=== PATIENT | male | born 2000 | race Caucasian/White ===

== ENCOUNTER 2025-04-03 23:50 | Inpatient (IN) | payer SELFPAY ==
[~2025-04-03] VITALS: Ht 182.9 cm; Wt 63.5 kg
[2025-04-04 00:03] VITALS: O2SAT 99
[2025-04-04 00:40] LABS: HEMATOCRIT. 34.4 % (42.0-52.0); HEMOGLOBIN. 9.9 g/dL (14.0-18.0); MEAN PLATELET VOLUME 7.8 fl (7.4-10.4); PLATELET 713 x1000/uL (130-400); RED BLOOD CELL COUNT 4.69 mill/uL (4.7-6.1); RED CELL DISTRIBUTION WIDTH 18.6 % (11.6-14.6)
[2025-04-04] MEDS: SODIUM CHLORIDE 0.9% 1,000 ML IV ONE ×2 (00:46→03:39)
[2025-04-04] MEDS: MAGNESIUM/ALUMINUM HYDROXIDE/SIMETHICONE 30ML UDC PO ONE (00:46)
[2025-04-04] MEDS: KETOROLAC 30MG/ML VIAL IV ONE (00:47)
[2025-04-04] MEDS: FAMOTIDINE 20MG/2ML VIAL IV ONE (00:47)
[2025-04-04] MEDS: ONDANSETRON HCL 4MG/2ML INJ IV ONE (00:47)
[2025-04-04 01:05] LABS: CREATININE 0.5 mg/dL (0.6-1.3); UREA NITROGEN BLOOD < 5 mg/dL (9-23)
[2025-04-04 01:06] LABS: ETHANOL BLOOD 15 mg/dL (<10); PROTEIN TOTAL 7.5 g/dL (6.0-8.3)
[2025-04-04 01:07] LABS: ASPARTATE AMINOTRANSFERASE 42 IU/L (<34); BILIRUBIN DIRECT 0.1 mg/dL (<=3.0); BILIRUBIN TOTAL 0.3 mg/dL (0.1-1.0)
[2025-04-04] MEDS: SODIUM CHLORIDE 0.9% (SEPSIS BOLUS) IV NR (01:32)
[2025-04-04] MEDS: CEFTRIAXONE 1GM/50ML 50 ML IV NR (01:32)
[2025-04-04 01:49] LABS: INR 1.1
[2025-04-04 03:05] LABS: BAND% 4.0 % (1.0-6.0); EOSINOPHILS % MANUAL 1.0 % (0.0-5.0); LYMPHOCYTES % MANUAL 10.0 % (20.0-50.0); MONOCYTES % MANUAL 5.0 % (2.0-8.0); NEUTROPHILS % MANUAL 80.0 % (45.0-75.0)
[2025-04-04 03:06] LABS: PLATELET ESTIMATE INCREASED
[2025-04-04] MEDS: VANCOMYCIN 1G PREMIX 200 ML IV SCH (04:13)
[2025-04-04 05:44] VITALS: BP 118/59; PULSE 103; RESP 18; TEMP 37.53
[2025-04-04 08:00] VITALS: BP 114/61; PULSE 110; RESP 18; TEMP 36.2; O2SAT 99
[2025-04-04] MEDS ORDERED: LORAZEPAM 1MG TABLET PO PRN (10:15)
[2025-04-04] MEDS ORDERED: CHLORDIAZEPOXIDE 25MG CAPSULE PO PRN (10:15)
[2025-04-04] MEDS: THIAMINE HCL 100MG TABLET PO SCH (10:33)
[2025-04-04] MEDS: DEXT 5%/0.45% NACL 1000ML 1,000 ML IV SCH (10:33)
[2025-04-04] MEDS: PANTOPRAZOLE 40MG DR TABLET PO SCH (10:33)
[2025-04-04] MEDS: FOLIC ACID 1MG TABLET PO SCH (10:33)
[2025-04-04 12:00] VITALS: BP 116/67; PULSE 107; RESP 18; TEMP 36.3; O2SAT 100
[2025-04-04 13:21] LABS: CREATININE 0.4 mg/dL (0.6-1.3); UREA NITROGEN BLOOD 7 mg/dL (9-23)
[2025-04-04 13:22] LABS: PROTEIN TOTAL 6.5 g/dL (6.0-8.3)
[2025-04-04 13:23] LABS: ASPARTATE AMINOTRANSFERASE 35 IU/L (<34)
[2025-04-04 13:24] LABS: BILIRUBIN TOTAL 0.4 mg/dL (0.1-1.0)
[2025-04-04] MEDS: KETOROLAC 30MG/ML VIAL IV PRN (15:50)
[2025-04-04] MEDS: ONDANSETRON HCL 4MG/2ML INJ IV PRN (15:50)
[2025-04-04 16:00] VITALS: BP 117/65; PULSE 97; RESP 18; TEMP 36.6; O2SAT 99
[2025-04-04 20:00] VITALS: BP 97/57; PULSE 71; RESP 18; TEMP 36.4; O2SAT 99
[2025-04-05] VITALS: BP 112/71; PULSE 103; RESP 18; TEMP 36.1; O2SAT 93
[2025-04-05] MEDS: CEFTRIAXONE 1GM/50ML 50 ML IV SCH (00:51)
[2025-04-05 04:00] VITALS: BP 113/57; PULSE 107; RESP 18; TEMP 36.3; O2SAT 96
[2025-04-05 08:00] VITALS: BP 117/64; PULSE 114; RESP 15; TEMP 36.7; O2SAT 100
[2025-04-05 12:00] VITALS: BP 108/64; PULSE 96; RESP 20; TEMP 36.9; O2SAT 99
[2025-04-05 12:03] LABS: BASOPHILS % 0.8 % (0.0-2.0); EOSINOPHILS % 1.0 % (0.0-5.0); HEMATOCRIT. 25.7 % (42.0-52.0); HEMOGLOBIN. 7.9 g/dL (14.0-18.0); LYMPHOCYTES % 10.9 % (20.0-50.0); MEAN PLATELET VOLUME 8.0 fl (7.4-10.4); MONOCYTES % 12.6 % (2.0-8.0); NEUTROPHILS % 74.7 % (40.0-76.0); PLATELET 707 x1000/uL (130-400); RED BLOOD CELL COUNT 3.62 mill/uL (4.7-6.1); RED CELL DISTRIBUTION WIDTH 17.6 % (11.6-14.6)
[2025-04-05 12:16] LABS: CREATININE 0.5 mg/dL (0.6-1.3); UREA NITROGEN BLOOD < 5 mg/dL (9-23)
[2025-04-05 13:33] LABS: CLARITY URINE CLEAR (CLEAR); COLOR URINE YELLOW (YELLOW); GLUCOSE URINE NEGATIVE (NEGATIVE); KETONES URINE NEGATIVE (NEGATIVE); LEUKOCYTE ESTERASE URINE NEGATIVE (NEGATIVE); NITRITE URINE NEGATIVE (NEGATIVE); OCCULT BLOOD URINE NEGATIVE (NEGATIVE); PH URINE 7.0 (4.5-8.0); PROTEIN URINE NEGATIVE (NEGATIVE); SPECIFIC GRAVITY URINE 1.007 (1.005-1.030); UROBILINOGEN URINE 0.2 E.U./dL (0.2-1.0)
[2025-04-05 13:42] LABS: *AMPHETAMINES SCREEN URINE NEGATIVE (NEGATIVE); *BARBITURATES SCREEN URINE NEGATIVE (NEGATIVE); *BENZODIAZEPINES SCREEN URINE NEGATIVE (NEGATIVE); *COCAINE SCREEN URINE NEGATIVE (NEGATIVE); METHADONE URINE SCREEN NEGATIVE (NEGATIVE)
[2025-04-05 13:43] LABS: CANNABINOID URINE SCREEN NEGATIVE (NEGATIVE); ECSTASY MDMA SCREEN URINE NEGATIVE (NEGATIVE); OPIATES URINE SCREEN NEGATIVE (NEGATIVE); PHENCYCLIDINE URINE SCREEN NEGATIVE (NEGATIVE)
[2025-04-05 16:00] VITALS: BP 106/56; PULSE 91; RESP 20; TEMP 36.3; O2SAT 98
[2025-04-05 20:00] VITALS: BP 101/56; PULSE 99; RESP 16; TEMP 38.2; O2SAT 97
[2025-04-05] MEDS: ACETAMINOPHEN 325MG TABLET PO PRN (21:21)
[2025-04-05] MEDS: GUAIFENESIN 200MG/10ML SUGAR FREE UDC PO PRN (21:21)
[2025-04-06] VITALS (7 sets, daily range): BP systolic 98–114; BP diastolic 53–69; PULSE 67–117; RESP 16–18; TEMP 36.3–38.4; O2SAT 95–100
[2025-04-06 07:45] LABS: BASOPHILS % 1.0 % (0.0-2.0); EOSINOPHILS % 1.3 % (0.0-5.0); HEMATOCRIT. 30.4 % (42.0-52.0); HEMOGLOBIN. 9.1 g/dL (14.0-18.0); LYMPHOCYTES % 10.1 % (20.0-50.0); MEAN PLATELET VOLUME 8.1 fl (7.4-10.4); MONOCYTES % 10.6 % (2.0-8.0); NEUTROPHILS % 77.0 % (40.0-76.0); PLATELET 781 x1000/uL (130-400); RED BLOOD CELL COUNT 4.24 mill/uL (4.7-6.1); RED CELL DISTRIBUTION WIDTH 17.7 % (11.6-14.6)
[2025-04-06] MEDS: METOPROLOL TARTRATE 50MG TABLET PO SCH (08:30)
== END 2025-04-06 20:26 | disposition left against medical advice (07) | DRG 251 ==
LOC: ER 23:50 → 5WST 04-04 01:50 → EDBEDREQTM 04-04 01:53 → EDBEDREQ 04-04 01:53 → ENRESERV 04-04 02:18 → CANRESERV 04-04 02:18 → EDBEDREQTM 04-04 03:52 → EDBEDREQSVC 04-04 03:52 → ENRESERV 04-04 04:11
PROVIDERS: ADMIT Internal Medicine; ATTEND Internal Medicine
DX: R10.9 Unspecified abdominal pain (principal); J18.9 Pneumonia, unspecified organism; F10.129 Alcohol abuse with intoxication, unspecified; D72.829 Elevated white blood cell count, unspecified; Z53.29 Procedure and treatment not carried out because of patient's decision for other reasons; Y90.0 Blood alcohol level of less than 20 mg/100 ml
CPT/HCPCS: 36415; 74176; 80048; 80053; 80076; 80305; 80320; 81003; 83605; 84145; 85025; 99291; J0696; J1308; J1885; J2405; J3373; J7030; G0480